=== PATIENT | female | born 1995 | race Caucasian/White ===

== ENCOUNTER → 2018-09-25 | Outpatient (CLI) | payer BC ==
[~2018-09-25] MED LIST: LOESTRIN1 EAC1 PO; MELATONIN3 MG PO; SUMATRIPTAN SUC25 MG PO; TOPIRAMATE25 MG PO; VIT D3 PO
--- NOTE | 2018-09-25 12:59 | Diagnostic Imaging Report ---
EXAM: US ABDOMEN COMPLETE INDICATION: Lower abdominal pain. COMPARISON: None TECHNIQUE: Transverse and longitudinal valdes scale and color doppler sonographic images of the abdomen were obtained. FINDINGS: LIVER 14 cm in the right midclavicular line. Increased echogenicity of the liver with normal contour, no masses. Echogenic foci in the liver. SPLEEN 12.8 cm in maximum diameter. Normal echogenicity, no masses. GALLBLADDER No gallbladder wall thickening, distension, stone, or pericholecystic fluid. Negative reported sonographic Connolly's sign. BILE DUCTS No intra nor extra-hepatic biliary dilation. Common bile duct measures 0.2 cm PANCREAS: Visualized portions are normal. RIGHT KIDNEY: 12.0 cm Echogenicity: Normal Collecting System: No hydronephrosis Stones: None Cyst/Mass: None LEFT KIDNEY: 11.4 cm Echogenicity: Normal Collecting System: No hydronephrosis Stones: None Cyst/Mass: None VESSELS: Aorta: Visualized portions are within normal size limits Inferior Vena Cava: Visualized portions are normal Main Portal Vein: 1.0 cm, normal size with hepatopetal flow. FREE FLUID: None IMPRESSION: Hepatic steatosis with echogenic foci within the liver, with a starry tad appearance. This is a nonspecific finding, and could reflect hepatitis, fasting liver, or other etiology. Signed by: Dr. Ronni Verma MD on 09/25/2018 12:55 PM
--- NOTE | 2018-09-29 22:44 | Operative Report ---
DATE OF PROCEDURE: 09/29/2018 SURGEON: Ezio Flowers MD PROCEDURE: EGD with biopsies. INDICATIONS FOR EGD: Dyspepsia, nausea. MEDICATION: The patient was done under MAC, please see anesthesiologist's note. PROCEDURE IN DETAIL: With the patient in left lateral decubitus position, a flexible fiberoptic Olympus gastroscope was introduced into the esophagus under direct visualization without any difficulty. There was some patchy erythema noted in distal esophagus. The scope was then advanced with ease into the stomach and the mucosa overlying the antrum and the body revealed some patchy erythema and moderate edema and biopsies were obtained, sent to stain for H pylori. Pylorus appeared to be of normal contour and shape, it was intubated with ease and the scope was advanced all the way to the second portion of the duodenum. The scope was then withdrawn slowly and the mucosa overlying the proximal second portion revealed some minimal scalloping of the folds and biopsies were obtained as well as from the duodenal bulb to rule out sprue. The scope was then withdrawn back into the stomach and retroflexed mucosa overlying the fundus and cardia appeared to be within normal limits. The scope was then straightened out, it was subsequently withdrawn. The patient tolerated procedure well. IMPRESSION: 1. Distal esophagitis. 2. Gastritis, biopsied. Biopsies sent to stain for Helicobacter pylori. 3. Rule out sprue. PLAN: Follow up histology. Initiate Protonix 40 mg one p.o. q.a.m. before meals. Ezio Flowers MD [facility] [place] /[id number] cc: Fidel Flowers MD
== END ==
LOC: US 11:44
PROVIDERS: ATTEND Internal Medicine Gastroenterology
DX: R10.30 Lower abdominal pain, unspecified (principal)
CPT/HCPCS: 76700

== ENCOUNTER → 2018-09-29 | Day surgery (SDC) | payer BC ==
[~2018-09-29] MED LIST changes: +FENTANYL CITRATE/PF 100MCG/2 ML INJ ONE; +LIDOCAINE HCL 2% LOCAL INJ 5 ML SDV VIAL INJ ONE; +MIDAZOLAM HCL 2 MG/2 ML VIAL ONE; +PROPOFOL IV EMULSION 10 MG/ML 20 ML VIAL ONE; +PROPOFOL IV EMULSION 10 MG/ML 50 ML VIAL ONE
--- OUTSIDE RECORDS SUMMARY | 2018-09-29 10:05 | XMS REPORT ---
Author Author [facility] Address Unknown Phone Unavailable Care Team Providers Care Fourchette Sewer Name Role Phone STEVE MENDES Unavailable Unavailable Unavailable Unavailable Problems This patient has no known problems. Allergies, Adverse Reactions, Alerts This patient has no known allergies or adverse reactions. Medications This patient has no known medications. Results Test Description Test Time Test Comments Text Results Atomic Results Result Comments US ABDOMEN COMPLETE 2018-09-25 12:51:00 [facility] [address] [place] [address] Patient Name: CARLOS MAN MR #: [id number] : 1995 Age/Sex: 23/F Req #: [id number] Adm Physician: Ordered by: STEVE MENDES MD Report #: [id number] Location: US Room/Bed: Procedure: [id number] US/US ABDOMEN COMPLETE Exam Date: 09/25/18 Exam Time: 1159 REPORT STATUS: Signed EXAM: US ABDOMEN COMPLETE INDICATION: Lower abd ominal pain. COMPARISON: None TECHNIQUE: Transverse and longitudinal valdes scale and color doppler sonographic images of the abdomen were obtained. FINDINGS: LIVER 14 cm in the right midclavicular line. Increased echogenicity of the liver with normal contour, no masses. Echogenic foci in the liver. SPLEEN 12.8 cm in maximum diameter. Normal echogenicity, no masses. GALLBLADDER No gallbladder wall thickening, distension, stone, or pericholecystic fluid. Negative reported sonographic Connolly's sign. BILE DUCTS No intra nor extra-hepatic biliary dilation. Common bile duct measures 0.2 cm PANCREAS: Visualized portions are normal. RIGHT KIDNEY: 12.0 cm Echogenicity: Normal Collecting System: No hydronephrosis Stones: None Cyst/Mass: None LEFT KIDNEY: 11.4 cm Echogenicity: Normal Collecting System: No hydronephrosis Stones: None Cyst/Mass: None VESSELS: Aorta: Visualized portions are within normal size limits Inferior Vena Cava: Visualized portions are normal Main Portal Vein: 1.0 cm, normal size with hepatopetal flow. FREE FLUID: None IMPRESSION: Hepatic steatosis with echogenic foci within the liver, with a starry tad appearance. This is a nonspecific finding, and could reflect hepatitis, fasting liver, or other etiology. Signed by: Dr. Tracy Wilder MD on 09/25/2018 12:55 PM Dictated By: TRACY WILDER MD 1255 Transcribed By: NENA on 09/25/18 1255 COPY TO: STEVE MENDES MD MRI BRAIN WOW [place] [address] Patient Name: CARLOS MAN MR #: [id number] : 1995 Age/Sex: 21/F Req #: [id number] Adm Physician: Ordered by: OTONIELMATHIEU GARCIA MD Report #: [id number] Location: MRI Room/Bed: Procedure: [id number] MRI/MRI BRAIN WOW Exam Date: Exam Time: REPORT STATUS: Signed Examination: MRI BRAIN WITHOUT AND WITH CONTRAST History: Constant headaches. Migraines. Follow up pineal gland cyst. Comparison studies: Brain MRI performed February 15, 2016 Technique: Pre-contrast: Sagittal T2; axial T1, GRE or SWI, DWI, T2 FLAIR Post-contrast: axial, sagittal and coronal T1. Intravenous contrast: 10 mL Gadavist. Findings: Scalp: No abnormal signal. No masses. Bone marrow: Normal in signal int ensity. Brain volume: Adequate for age. No volume loss. Ventricles: Normal in size and configuration. No hydrocephalus. Parenchyma: No abnormal signal intensities. No masses, hemorrhage, acute or chronic vascular insults. Extra-axial spaces: No hematoma. Again demonstrated is a 1.2 cm mildly peripherally enhancing lesion with single incomplete septation in the peroneal gland. Enhancement: As above. Suprasellar and sellar region: No abnormalities. Craniocervical junction: No abnormalities. The foramen magnum is patent. No Chiari malformations. Vessels: Normal flow- voids in the arteries and sinuses. Additional findings:None. IMPRESSION: 1. No new abnormality. No change from prior brain MRI performed February 15, 2016. 2. 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 Signed by: Dr. Latoya Kapoor M.D. on 01/30/2017 7:50 AM Dictated By: LATOYA KAPOOR MD 075 Transcribed By: NENA on 01/30/17 075 COPY TO: SATURDAYMATHIEU MD
[2018-09-29 16:15] VITALS: BP 127/92
--- NOTE | 2018-10-28 05:41 | Operative Report ---
DATE OF PROCEDURE: 09/29/2018 SURGEON: Ezio Flowers MD PROCEDURE: EGD with biopsies. INDICATIONS FOR EGD: Upper abdominal pain, nausea, bloating, diarrhea. MEDICATIONS: The patient was done under MAC, please see anesthesiologist's note. PROCEDURE IN DETAIL: With the patient in left lateral decubitus position, a flexible fiberoptic Olympus gastroscope was introduced into the esophagus under direct visualization without any difficulty. There were some patchy erythema noted in distal esophagus. The scope was then advanced with ease into the stomach. Mucosa overlying the antrum and the body revealed some patchy erythema and [id number] edema and biopsies were obtained and sent to stain for H pylori. Pylorus was of normal contour and shape, it was intubated with ease and the scope was advanced all the way to the second portion of the duodenum. The scope was then withdrawn slowly and biopsies were obtained from the second portion and the duodenal bulb to rule out sprue. The scope was then withdrawn back into the stomach and retroflexed. Mucosa overlying the fundus and the cardia appeared to be within normal limits. The scope was then straightened out, it was subsequently withdrawn. The patient tolerated the procedure well. IMPRESSION: 1. Distal esophagitis. 2. Gastritis, biopsied. Biopsies sent to stain for Helicobacter pylori. 3. Rule out sprue. PLAN: Follow up histology. Initiate Protonix 40 mg one p.o. q.a.m. before meals. Ezio Flowers MD [facility] [place] [place][id number] cc: Fidel Flowers MD
== END | disposition home or self-care (01) ==
LOC: OR 10:02
PROVIDERS: ATTEND Internal Medicine Gastroenterology
DX: K29.70 Gastritis, unspecified, without bleeding (principal); K20.9 Esophagitis, unspecified; R19.7 Diarrhea, unspecified; F90.9 Attention-deficit hyperactivity disorder, unspecified type; Z68.38 Body mass index [BMI] 38.0-38.9, adult
CPT/HCPCS: 43239; 81025; J2001; J2250; J2704 ×2

== ENCOUNTER → 2021-07-17 | Outpatient (CLI) | payer BC ==
[~2021-07-17] MED LIST changes: -FENTANYL CITRATE/PF 100MCG/2 ML INJ ONE; -LIDOCAINE HCL 2% LOCAL INJ 5 ML SDV VIAL INJ ONE; -MIDAZOLAM HCL 2 MG/2 ML VIAL ONE; -PROPOFOL IV EMULSION 10 MG/ML 20 ML VIAL ONE; -PROPOFOL IV EMULSION 10 MG/ML 50 ML VIAL ONE
== END ==
LOC: US 08:07
PROVIDERS: ATTEND Internal Medicine Gastroenterology
DX: R10.84 Generalized abdominal pain (principal)
CPT/HCPCS: 76700